=== PATIENT | male | born 1965 | race Caucasian/White ===

== ENCOUNTER 2016-08-20 14:37 | Emergency (ER) | payer SELFPAY ==
[~2016-08-20] VITALS: Ht 177.8 cm; Wt 72.6 kg
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
[2016-08-20] MEDS ORDERED: HYDROCODONE/APAP 10/325MG 1 EA TABLET ONE (14:55)
[2016-08-20] MEDS ORDERED: IBUPROFEN 600 MG TABLET PO ONE ×2 (14:55→15:00)
[2016-08-20] MEDS ORDERED: HYDROCODONE/APAP 10/325MG 1 EA TABLET PO ONE (15:00)
--- NOTE | 2016-08-20 15:38 | NUR ---
XRAY AT BEDSIDE
[2016-08-20] MEDS ORDERED: HYDROMORPHONE 1 MG/1 ML DISP.SYRIN ONE (16:32)
[2016-08-20] MEDS ORDERED: ONDANSETRON 4 MG TAB.RAPDIS ONE (16:32)
[2016-08-20] MEDS ORDERED: HYDROMORPHONE 1 MG/1 ML DISP.SYRIN IM ONE (17:00)
[2016-08-20] MEDS ORDERED: ONDANSETRON 4 MG TAB.RAPDIS SL ONE (17:00)
[2016-08-20 17:33] VITALS: BP 142/94
--- NOTE | 2016-08-20 17:34 | NUR ---
Patient discharged to home in stable condition. Written and verbal after care instructions given. Patient verbalizes understanding of instruction.
== END 2016-08-20 17:35 | disposition home or self-care (01) ==
LOC: ER 14:42
DX: M25.562 Pain in left knee (principal)
CPT/HCPCS: 73564; 73590; 96372; 99284; A4606; J1170; Q0162; Z7610